=== PATIENT | female | born 1995 | race Caucasian/White ===

== ENCOUNTER → 2023-03-16 | Outpatient (CLI) | payer BC, SELFPAY ==
[2023-03-16 17:06] LABS: Absolute Lymphocyte Count 1.75 X10^3/uL (0.83-4.51); Basophil# 0.04 X10^3/uL; Basophil% 0.3 % (0-1); Eosinophil# 0.06 X10^3/uL; Eosinophils% 0.5 % (0-5); Hematocrit 36.3 % (37-47); Hemoglobin 12.4 g/dL (12.0-15.0); Lymphocyte # 1.75 X10^3/ul (0.83-4.51); Mean Corp Hgb Conc 34.2 g/dL (32-36); Mean Corpuscular Hgb 33.1 pg (27.0-32.0); Mean Corpuscular Volume 96.8 fL (81-99); Mean Platelet Vol. 10.9 fl (6.2-12.0); Monocyte# 0.57 X10^3/uL; Monocyte% 4.6 % (0-10); NRBC Flagged by Analyzer 0 % (0-5); Neutrophil # 9.98 X10^3/uL (2.7-7.7); Platelet Count 220 K/mm3 (150-450); RBC Distribution Width CV 12.3 % (11.6-14.6); RBC Distribution Width SD 43.2 fl (35.1-43.9); Red Blood Count 3.75 M/mm3 (4.2-5.4); White Blood Count 12.5 K/mm3 (4.4-11.0)
[2023-03-16 17:42] LABS: Glucose Challenge Gest 1H 50g 148 mg/dL (70-140)
[2023-03-16 18:17] LABS: HIV - WCH Non-Reactive (Nonreactive); Syphilis Antibodies Non-reactive
== END | disposition home or self-care (01) ==
LOC: LAB 15:47
PROVIDERS: Referring Provider Obstetrics & Gynecology; Visit Provider Obstetrics & Gynecology
DX: Z34.90 Encounter for supervision of normal pregnancy, unspecified, unspecified trimester (principal)
CPT/HCPCS: 36415; 82950; 85025; 86703; 86780; 86900; 86901

== ENCOUNTER → 2023-03-26 | Outpatient (CLI) | payer BC, SELFPAY ==
[2023-03-26 09:01] LABS: Glucose GTT-Gestation. Fasting 80 mg/dL (<105)
[2023-03-26 10:04] LABS: Glucose GTT-Gestational 1 Hr 212 mg/dL (<190)
[2023-03-26 11:36] LABS: Glucose GTT-Gestational 2 Hr 208 mg/dL (<165)
[2023-03-26 11:46] LABS: Glucose GTT-Gestational 3 Hr 167 L (<145)
== END | disposition home or self-care (01) ==
LOC: LAB 07:50
PROVIDERS: Referring Provider Obstetrics & Gynecology; Visit Provider Obstetrics & Gynecology
DX: Z13.1 Encounter for screening for diabetes mellitus (principal)
CPT/HCPCS: 36415; 82951; 82952

== ENCOUNTER → 2023-04-29 | Outpatient (CLI) | payer BC, SELFPAY ==
--- NOTE | 2023-04-29 15:25 | US_ITS ---
STUDY: SECOND AND THIRD TRIMESTER OBSTETRICAL ULTRASOUND - LIMITED REASON FOR EXAM: Female, 27 years old. gestational diabetes-GROWTH PRIOR ULTRASOUND: None. TECHNIQUE: Transabdominal TECHNICAL QUALITY: Adequate. FINDINGS: There is a single intrauterine fetus. The fetus is in a cephalic presentation. There is demonstrated cardiac activity with a heart rate of 152 bpm. There is a normal amniotic fluid volume. The largest amniotic fluid pocket measures 6.4 cm. The amniotic fluid index (RAMSEY) is 12.1 cm. The placenta is posterior in location and is not low lying. There are Grade 3 placental changes. The cervix measures cm in length: 3.1. BIOMETRY: BPD: 89 mm: 35 weeks, 6 days HC: 337 mm: 38 weeks, 4 days AC: 326 mm: 36 weeks, 4 days FL: 71 mm: 36 weeks, 4 days CI: 81.5 FL/AC: 21.8 FL/BPD: 80.3 HC/AC: 1.03 age by current US: 36 weeks, 2 days. ARACELI by current US: 8.28.23. Estimated weight: 2965 grams, +/- 445 grams, 69 %. Age by LMP: 35 weeks, 6 days. ARACELI by LMP: 8.31.23 US/OB Limited With Biometrics IMPRESSION: There is a single live intrauterine with a heart rate of 152 bpm. Electronically Signed: Javad Russo MD at 17:57 EDT ,
== END | disposition home or self-care (01) ==
PROVIDERS: Referring Provider Registered Nurse; Visit Provider Registered Nurse
DX: O24.419 Gestational diabetes mellitus in pregnancy, unspecified control (principal); Z3A.00 Weeks of gestation of pregnancy not specified
CPT/HCPCS: 76816

== ENCOUNTER → 2023-05-08 | Outpatient (CLI) | payer BC, SELFPAY | END | disposition home or self-care (01) | LOC: LABSPEC 10:49 | PROVIDERS: Referring Provider Registered Nurse; Visit Provider Registered Nurse | DX: Z34.90 Encounter for supervision of normal pregnancy, unspecified, unspecified trimester (principal) | CPT/HCPCS: 87081 ==

== ENCOUNTER 2023-05-25 07:10 | Inpatient (IN) | payer BC, SELFPAY ==
[2023-05-25] VITALS (45 sets, daily range): BP systolic 101–130; BP diastolic 57–78; PULSE 62–111; RESP 16–18; TEMP 35.7–37; O2SAT 89–100; BMI 25.0
[2023-05-25] MEDS: Lactated Ringers 1,000 ML 50 ML IV (07:45)
[2023-05-25 08:11] LABS: Absolute Lymphocyte Count 1.82 X10^3/uL (0.83-4.51); Absolute Neutrophil Count 6.7 X10^3/uL (2.0-7.7); Basophil# 0.03 X10^3/uL; Basophil% 0.3 % (0-1); Eosinophil# 0.07 X10^3/uL; Eosinophils% 0.8 % (0-5); Hematocrit 35.4 % (37-47); Hemoglobin 12.3 g/dL (12.0-15.0); Lymphocyte # 1.82 X10^3/ul (0.83-4.51); Lymphocyte % 19.8 % (19-41); Mean Corp Hgb Conc 34.7 g/dL (32-36); Mean Corpuscular Hgb 33.4 pg (27.0-32.0); Mean Corpuscular Volume 96.2 fL (81-99); Mean Platelet Vol. 11.9 fl (6.2-12.0); Monocyte# 0.52 X10^3/uL; Monocyte% 5.6 % (0-10); NRBC Flagged by Analyzer 0 % (0-5); Neutrophil # 6.71 X10^3/uL (2.7-7.7); Neutrophil % 72.8 % (47-70); Platelet Count 170 K/mm3 (150-450); RBC Distribution Width CV 12.3 % (11.6-14.6); RBC Distribution Width SD 42.2 fl (35.1-43.9); Red Blood Count 3.68 M/mm3 (4.2-5.4); White Blood Count 9.2 K/mm3 (4.4-11.0)
[2023-05-25 08:54] LABS: Syphilis Antibodies Non-reactive
[2023-05-25] MEDS: Oxytocin 15 Units/NS 250ml 15 UNITS/250 ML IV.SOLN 2 UNITS IV (09:06)
--- NOTE | 2023-05-25 09:10 | HP.PCM.OB_ITS ---
HPI - General General Date of Admission: 05/25/23 HPI Narrative EDGAR BEAL, is a 27 F who presents at 39.4 for IOL for diet controlled GDM. normal growth scan. good fm. no lof/vb/ mild ctx. Maternal Data Information ARACELI Calculator Estimated Delivery Date Method Current WG Current Estimate 05/28/23 LMP (Certain) 39w 4d PFSH PFSH Medical History (Updated 05/25/23 @ 09:16 by Elizabeth Love CNM) Dermoid cyst Family history of hearing loss at age younger than 7 years Gestational diabetes Kidney calculi Home Medications blood sugar diagnostic (Blood Glucose Test strips) #120 ea 03/26/23 [Rx Last Taken Unknown] blood-glucose meter #1 ea 03/26/23 [Rx Last Taken Unknown] lancets #100 ea 03/26/23 [Rx Last Taken Unknown] vit no.95-ferrous fumarate 28 mg-folic acid 800 mcg tablet ( Multivitamins) 1 tab PO DAILY 05/25/23 [History Last Taken 05/24/23] Allergy/AdvReac Type Severity Reaction Status Date / Time No Known Allergies Allergy Verified 05/25/23 09:02 Family History Father Hypertension Prostate cancer Grandfather Prostate cancer Surgical History (Updated 05/25/23 @ 08:11 by Chelsi Capone) History of lithotripsy History of surgery Social History Smoking Status: Never smoker substance use type: does not use caffeine: Yes what type of physical activity do you participate in: walking and weight training frequency: 3-4 times per week seatbelt use: always do you feel safe at home: Yes History 4 Elective abortions Hx Para 2 Spontaneous abortions Hx # Term Pregnancies 2 Ectopic pregnancies 1 Hx # Pregnancies Multiple births # of living children 2 Past Pregnancies Del. Date Name GA/Weeks Outcome Route Bth Weight Gen Labor Lgth Anesthesia Del Locatn Provider FOB Unknown DIANA 2014 live - full term 7#? Female Unknown Mian 2017 41 live - full term 7#6oz Male Delivery Date: Last Updated by: Dian Echeverria - open adoption Visit Details Expected Delivery Route/Plan Labor Preferences- CB/BF classes: denies labor support person: [] labor intervention preferences: [] pain management options preferred: epidural cut cord/dad catch: [] : yes PP control planned: 6 week discussed possible routes of delivery and associated risks: [] special requests: [] Plans Covid status: discussed Flu vaccine: discussed Tdap vaccine: obtained Rhogam: given 03/16 LARC form signed: done movement and labor precautions reviewed. Problem list reviewed and updated with the most current plan of care details and appropriate orders placed. Relevant counseling for the gestational age provided. Continue routine care and follow up unless otherwise noted in visit notes/problem list details OB Flowsheet Initial Weight: Not Recorded Date -?-?-?-?-?-?-?-?-?-?-?-?- EGA Weight BP Urine Prot -?-?-?-?-?-?-?-?-?-?-?-?- Glucose FHR FuHt Pres Dilation -?-?-?-?-?-?-?-?-?-?-?-?- Effaced St Visit Note 03/16/23 -?-?-?-?-?-?-?-?-?-?-?-?- 29w 4d 182 lb 2 oz 102/70 -?-?-?-?-?-?-?-?-?-?-?-?- 135 -?-?-?-?-?-?-?-?-?-?-?-?- SM- no vb lof go od fm gct and rhogam today, NADINE due to insurance coverage. 04/01/23 -?-?-?-?-?-?-?-?-?-?-?-?- 31w 6d 186 lb 106/70 Negative -?-?-?-?-?-?-?-?-?-?-?-?- Negative 134 33 -?-?-?-?-?-?-?-?-?-?-?-?- JV- no lof, vagi nal bleeding, or dec fm. glucose levels are perfect on diet. had reaction to the tdap injection (got red and hard) 04/15/23 -?-?-?-?-?-?-?-?-?-?-?-?- 33w 6d 184 lb 6 oz 118/68 Nega tive -?-?-?-?-?-?-?-?-?-?-?-?- Negative 150 33 -?-?-?-?-?-?-?-?-?-?-?-?- KW-+fm. no lof/v b/ctx. LARC done. growth US ordered for GDM. BS controlled. 04/29/23 -?-?-?-?-?-?-?-?-?-?-?-?- 35w 6d 184 lb 4 oz 117/73 Nega tive -?-?-?-?-?-?-?-?-?-?-?-?- Negative 148 36 -?-?-?-?-?-?-?-?-?-?-?-?- LC- no lof/vb/ct x. good fm. no concerns. fastings under 95. pp with good control. ultrasound today. gbs next visit. 05/08/23 -?-?-?-?-?-?-?-?-?-?-?-?- 37w 1d 183 lb 2 oz 118/72 Nega tive -?-?-?-?-?-?-?-?-?-?-?-?- 127 37 -?-?-?-?-?-?-?-?-?-?-?-?- LC- no concerns. no lof/ctx/vb. good fm. fasting under 95. not consistent with taking pp due to not eating consistent meals. growth in 69% will set up IOL by 40 weeks. LC- no concerns. no lof/ctx/ vb. good fm. fasting under 95. not consistent with taking pp due to not eating consistent meals but all under 120. growth in 69% will set up IOL by 40 weeks. GBS obtained. 05/14/23 -?-?-?-?-?-?-?-?-?-?-?-?- 38w 0d 188 lb 110/75 Negative -?-?-?-?-?-?-?-?-?-?-?-?- Negative 150 38 Cephalic 1 .5 -?-?-?-?-?-?-?-?-?-?-?-?- 70 -2 JV- no lof ,vaginal bleeding, or dec fm. labor precautions discussed. 05/22/23 -?-?-?-?-?-?-?-?-?-?-?-?- 39w 1d 187 lb 4 oz 112/68 Nega tive -?-?-?-?-?-?-?-?-?-?-?-?- Negative 126 39 -?-?-?-?-?-?-?-?-?-?-?-?- KW-no lof/vb/rgu lar contractions. good fm. labor precautions. IOL set up for thursday. NST FHR Rate Baby A Baseline: 145 Variability:: Moderate Accelerations:: 15 x 15 Decelerations:: None NST Reactive:: Yes FHR Category:: Category I ROS Cardiovascular Cardiovascular: Denies abdominal pain, chest pain, diaphoresis or dyspnea Respiratory/Chest Respiratory/Chest: Denies change in mental status, chest congestion, chest tightness, cough, shortness of breath at rest, shortness of breath with exertion, breast mass, breast pain, breast skin changes, breast swelling, change in breast shape or nipple discharge Genitourinary Genitourinary: Reports change in urinary stream Musculoskeletal Musculoskeletal: Reports none Integumentary Integumentary: Reports none Neurologic Neurologic: Reports none Psychiatric Psychiatric: Reports none Endocrine Endocrinology: Reports none Hematologic/Lymphatic Hematologic/Lymphatic: Reports none Allergic/Immunologic Allergic/Immunologic: Reports none Vital Signs Vital Signs Vital Signs: 05/25/23 07:35 05/25/23 07:35 05/25/23 07:36 Temperature Temperature Source Temporal Pulse Rate 83 Blood Pressure 124/76 H BP Systolic 124 BP Diastolic 76 Pulse Ox 05/25/23 07:36 05/25/23 07:36 05/25/23 07:36 Temperature 96.8 F L Temperature Source Pulse Rate 87 Blood Pressure BP Systolic BP Diastolic Pulse Ox 96 Weight Weight: 190 lb Body Mass Index (BMI) 25.0 Physical Exam Const alert, oriented x3 and no apparent distress General Appearance: cooperative, comfortable and well kempt Orientation / Consciousness: awake and oriented to person Exam Limitations: no limitations HEENT normocephalic Neck full ROM Chest inspection of chest normal Resp normal respiratory effort, normal air movement and no retractions Effort and Inspection: able to speak in complete sentences and symmetric chest movement Cardio regular rate Peripheral Pulses: pulses 2+ throughout GI normal to inspection, nondistended, normoactive bowel sounds Inspection: gravid no CVA tenderness and appearance of the vagina normal External Female Exam: normal appearance of the urethra; Negative for external lesion OB / External & Speculum: external exam normal Manual OB Exam: estimated gestational size appropriate and presentation cephalic Uterus Palpation: Negative for uterus tender Extremity normal to inspection Skin no rashes or lesions noted Neuro deep tendon reflexes 2+ bilaterally and gait normal Motor Exam: strength 5/5 throughout and clonus absent Psych Activity / Motor Behavior: appropriate eye contact Speech: normal speech Labs Labs Labs: Blood Type A NEGATIVE Antibody Screen Pending Hct 35.4 % (37-47) L Hgb 12.3 g/dL (12.0-15.0) Pap Smear Negative Obstetrics US Syphilis Total Ab Non-reactive HIV 1&2 Antibody Non-Reactive (Nonreactive) Glucose 1 Hr 50 gm 148 mg/dL (70-140) H Assessment & Plan (1) Rh negative status during : COMMENT: rhogam at 28 weeks and PRN-Rhogam given 03/16/23 (2) : QUALIFIERS: Weeks of gestation: 39 weeks Qualified Code(s): Z3A.39 - 39 weeks gestation of COMMENT: GBS neg, late NADINE from [facility] due to insurance change, quad screen nl. nl anatomy. (3) Supervision of normal , antepartum: COMMENT: PRR ARACELI 05/28/23 boy Ankit Longoria (rowen-adopted) Davian (his first) (4) Gestational diabetes: COMMENT: diet controlled. growth us at 36 weeks PLAN: monitor glucose intrapartum per protocol (5) Encounter for induction of labor: COMMENT: pitocin for IOL/ AROM PRN PLAN: Plan admit with routine orders for IOL pitocin. GBS negative Dr. Pierre updated on admission, exam and poc. agrees with co-management for IOL for diet controlled GDM. available as needed.
[2023-05-25 09:26] LABS: Bedside Glucose 106 mg/dL (74-106)
[2023-05-25 09:44] LABS: Bedside Glucose 80 mg/dL (74-106)
[2023-05-25] MEDS: LACTATED RINGERS 500 ML 999 ML IV (11:03)
[2023-05-25] MEDS: fentaNYL-bupivacaine (epidural) 100 ML BAG EPIDURAL (11:45)
[2023-05-25 14:52] LABS: Bedside Glucose 69 mg/dL (74-106)
[2023-05-25] MEDS: Oxytocin 15 Units/NS 250ml 15 UNITS/250 ML IV.SOLN 83 UNITS IV (16:50)
[2023-05-25 17:53] LABS: Bedside Glucose 101 mg/dL (74-106)
--- NOTE | 2023-05-25 18:16 | OP.PCM_ITS ---
Assessment & Plan (1) (spontaneous vaginal delivery): COMMENT: LC IOL GDM diet controlled 39 weeks. Boy: Ankit. Maternal Data Information ARACELI Calculator Estimated Delivery Date Method Current WG Current Estimate 05/28/23 LMP (Certain) 39w 4d Final ARACELI: 05/28/23 Gestational age: 39.4 Vaginal Delivery Maternal Presentation Maternal Presentation: Medically Indicated Induction Maternal Presentation: at 39.4 for IOL for GDM diet controlled. otherwise uncomplicated . pitocin induction. Type of Induction: Pitocin Operative Information Date of Procedure: 05/25/23 Pre-Operative Diagnosis: see problem list Post-Operative Diagnosis: Surgery / Procedure Performed: Spontaneous Vaginal Delivery Type of Anesthesia: Epidural Drain: Hodgson to straight drain Estimated Blood Loss: 300 Time of Delivery: 15:57 Findings Description of Procedure: Patient began pushing and delivered the head in the BRIGITTE presentation. The head was delivered atraumatically and a loose nuchal cord ?2 was identified and easily reduced over the infant's head. The anterior and posterior shoulders delivered without complication followed by the rest of the and the was placed on the maternal abdomen. Delayed cord clamping was employed for approximately 3 minutes. Cord was clamped and cut and gentle traction was applied to the cord and the placenta delivered spontaneously immediately following it was noted to be intact with three-vessel cord. The perineum and vagina were inspected and noted to have right labia laceration with small vaginal/labia laceration, repaired with 3-0. EBL was 300cc. Patient and infant tolerated delivery well entered recovery phase bonding skin to skin. baby boy Ankit Presentation: Vertex Amniotic Membrane Rupture Type: Spontaneous Time of Membrane Rupture: 1pm Amniotic Fluid Description: Clear Placental Delivery Description: Spontaneous Placenta Disposition: [facility] Cord Vessel Description: 3 Vessels Cord Entanglement: Around neck x 2, loose Nuchal Cord Compression: Without compression Infant A Gender: Male (1 minute): 8 (5 minute): 9 Delayed Cord Clamping: Yes Post Vaginal Delivery Medications Given After Delivery: IV Pitocin and IM Pitocin Episiotomy Description: None Laceration: Vaginal Extension/lac Procedures Urinary/Genital 52xxx-59xxx: 24165 Vaginal Delivery+PP Care([facility])
--- NOTE | 2023-05-25 18:22 | DCINST_ITS ---
Discharge Instructions Diet Discharge Diet: No restrictions Activity Discharge Activity: May Not Drive and May Shower May resume sexual activity in: 6 weeks Weight Bearing Status: Full weight bearing Dressing / Incision Call your doctor if your incision/area has: Sudden Increased Bleeding, Increased Pain/ Swelling and Foul Smelling Discharge Call your doctor if you observe: Fever of 101 or Higher, Numbness or Tingling, Change in Color, Inability to urinate, Inability to have a bowel movement, Using more than 1 pad per hour, Shortness of breath, Dizziness, Fainting spells, Chest pain, Calf discomfort and Uncontrolled pain Follow Up Care Please Follow Up With: Elizabeth Love CNM When: 6 weeks , please call office to make an appointment. Congratulations on the of your baby boy LILLY!!! Test Results: Test results from this visit will be discussed in further detail at your follow- up appointment, if applicable. Discharge Plan Admission Admit Date/Time: 05/25/23 07:10 Attending Provider: Elizabeth Love Primary Care Provider: Rubi PhysicianFabiola Primary Discharge Orders/Prescriptions Prescriptions: No Action PNV cmb#95-ferrous fumarate-FA [ Multivitamins] 28 mg iron- 800 mcg tablet 1 tab PO DAILY (DME) blood-glucose meter Misc See Rx Instructions .MEDSUPPLY Qty: 1 0RF Rx Instructions: As directed- Test fasting and 2 hours after meals (DME) lancets Misc See Rx Instructions .MEDSUPPLY Qty: 100 6RF Rx Instructions: As directed-test fasting & 2 hours post meals (DME) Blood Glucose Test Strip See Rx Instructions .Route Qty: 120 4RF Rx Instructions: As directed- test fasting and 2 hours post meals Referrals / Follow Up: Care Physician,No Primary [Primary Care Provider] -
[2023-05-25] MEDS: Benzocaine/Lanolin/Aloe Vera 1 SPRAY EACH TOPICAL (21:06)
[2023-05-26] VITALS (10 sets, daily range): BP systolic 103–117; BP diastolic 56–70; PULSE 61–80; RESP 16–18; TEMP 36.3–36.8; O2SAT 96–97
[2023-05-26 05:30] LABS: Bedside Glucose 79 mg/dL (74-106)
--- NOTE | 2023-05-26 07:16 | PN.OBGYN_ITS ---
Subjective Subjective Patient doing well without complaints. Tolerating PO. Ambulating and voiding without difficulty. Feeding well. Denies chest pain, shortness of breath, calf pain/swelling, fevers, chills, lightheadedness. Objective Data Objective Data Vital Signs: Vital Signs Temp Pulse Resp BP Pulse Ox O2 Del Method 98.3 F 77 16 111/56 L 97 Room Air 05/26/23 04:20 05/26/23 04:20 05/26/23 04:20 05/26/23 04:20 05/26/23 04:20 05/26/23 04:20 Oxygen Delivery Method Room Air Weight: 190 lb Body Mass Index (BMI) 25.0 Intake & Output: Intake and Output for Last 24 Hours 05/24/23 05/25/23 05/26/23 23:59 23:59 23:59 Intake Total 1981.71 / 1981. Output Total 2750 / 2750 Balance -767.29 / -767.29 Lab / Micro Data Attestation: I reviewed the patient's lab results. 05/25/23 07:45 Labs: Laboratory Results - last 24 hr 05/25/23 07:45: WBC 9.2, RBC 3.68 L, Hgb 12.3, Hct 35.4 L, MCV 96.2, MCH 33.4 H, MCHC 34.7, RDW Std Deviation 42.2, RDW Coeff of Sami 12.3, Plt Count 170, MPV 1 1.9, Immature Gran % (Auto) 0.700, Neut % (Auto) 72.8 H, Lymph % (Auto) 19.8, [place] % (Auto) 5.6, Eos % (Auto) 0.8, Baso % (Auto) 0.3, Absolute Neuts (auto) 6.7, Absolute Lymphs (auto) 1.82, Nucleated RBC % 0, Syphilis Total Ab Non- reactive, Blood Type A NEGATIVE, Antibody Screen NEGATIVE 05/25/23 08:03: POC Glucose 106 05/25/23 09:17: POC Glucose 80 05/25/23 14:34: POC Glucose 69 L 05/25/23 17:32: POC Glucose 101 05/26/23 05:10: POC Glucose 79 ROS Constitutional Constitutional: Reports systems reviewed and no addt'l complaints, except as documented; Denies anorexia or headache(s) Cardiovascular Cardiovascular: Reports systems reviewed and no addt'l complaints, except as documented; Denies dizziness, dyspnea, nausea or tachypnea Respiratory/Chest Respiratory/Chest: Reports systems reviewed and no addt'l complaints, except as documented; Denies cough, dyspnea, shortness of breath at rest or tachypnea Gastrointestinal Gastrointestinal: Reports systems reviewed and no addt'l complaints, except as documented; Denies abdominal pain, constipation or nausea Genitourinary Genitourinary: Reports systems reviewed and no addt'l complaints, except as documented; Denies burning urination, difficulty urinating, dysuria, urinary frequency or urinary incontinence Musculoskeletal Musculoskeletal: Reports systems reviewed and no addt'l complaints, except as documented Integumentary Integumentary: Reports systems reviewed and no addt'l complaints, except as documented Neurologic Neurologic: Reports systems reviewed and no addt'l complaints, except as documented; Denies abnormal speech, dizziness or headache(s) Psychiatric Psychiatric: Reports systems reviewed and no addt'l complaints, except as documented Endocrine Endocrinology: Reports systems reviewed and no addt'l complaints, except as documented Hematologic/Lymphatic Hematologic/Lymphatic: Reports systems reviewed and no addt'l complaints, except as documented Physical Exam Const alert, oriented x3 and no apparent distress Neck full ROM Resp normal respiratory effort, normal air movement and no retractions Effort and Inspection: able to speak in complete sentences and symmetric chest movement GI soft to palpation Bladder / Kidney Exam: bladder normal to palpation Uterus Palpation: uterus fundus firm Extremity normal to inspection and full ROM Psych mental status grossly normal, thought process normal and cooperative Assessment & Plan (1) (spontaneous vaginal delivery): COMMENT: LC IOL GDM diet controlled 39 weeks. Boy: Ankit. PLAN: s/p PPD # 1 1. routine post delivery care 2. breast feeding- support given 3. rh positive 4. rubella immune 5. Discharge Home (2) Encounter for induction of labor: COMMENT: pitocin for IOL/ AROM PRN (3) Abnormal glucose level: COMMENT: 3 HR GTT (4) Rh negative status during : COMMENT: rhogam at 28 weeks and PRN-Rhogam given 03/16/23 (5) : QUALIFIERS: Weeks of gestation: 39 weeks Qualified Code(s): Z3A.39 - 39 weeks gestation of COMMENT: GBS neg, late NADINE from [facility] due to insurance change, quad screen nl. nl anatomy. (6) Supervision of normal , antepartum: COMMENT: PRR ARACELI 05/28/23 boy Ankit Longoria (rowen-adopted) Davian (his first) (7) Gestational diabetes: COMMENT: diet controlled. growth us at 36 weeks Charges/Coding Procedures Urinary/Genital 52xxx-59xxx: No Charge Multi Select Codes Urinary/Genital Urinary/Genital CPT Codes: No Charge
[2023-05-26] MEDS: Naproxen 500 MG Tablet PO (07:36)
[2023-05-26] MEDS: Acetaminophen 500 MG Tablet 1000 MG PO (10:16)
[2023-05-26] MEDS: Senna/Docusate Sodium 1 Tablet PO (10:17)
== END 2023-05-26 17:00 | disposition home or self-care (01) | DRG 807 ==
PROVIDERS: Obstetrics & Gynecology; Admitting Provider Registered Nurse; Referring Provider Registered Nurse; Visit Provider Registered Nurse
DX: O24.420 Gestational diabetes mellitus in childbirth, diet controlled (principal); Z37.0 Single live birth; O26.23 Pregnancy care for patient with recurrent pregnancy loss, third trimester; Z3A.39 39 weeks gestation of pregnancy; Z67.91 Unspecified blood type, Rh negative
CPT/HCPCS: 59025; 59050; 82962; 85025; 86780; 86850; 86900; 86901; 99221; J7120; G0378; J3490

== ENCOUNTER → 2024-03-25 | Outpatient (CLI) | payer OTHER, SELFPAY ==
--- NOTE | 2024-03-25 12:40 | US_ITS ---
HISTORY: viability. LMP 02/13/2024. TECHNIQUE: Transvaginal pelvic ultrasound was performed. 116 images. COMPARISON: None. FINDINGS: UTERUS: 11.2 x 7.2 x 8.2 cm and retroverted. RIGHT OVARY: 2.4 x 3.2 x 2.1 cm with a 2.1 cm corpus luteal cyst. LEFT OVARY: 2.3 x 3.6 x 2.6 cm. No adnexal masses. FREE FLUID: Trace. INTRAUTERINE GESTATIONAL SAC: Twin. Twin A- MEAN SAC DIAMETER: 2.5 cm corresponding to 7 weeks 4 days. YOLK SAC: 3 mm. POLE: Sumas-rump length 11 mm corresponding to 7 weeks 2 days. HEART MOTION: 140 bpm. Twin B- MEAN SAC DIAMETER: 2.6 cm corresponding to 7 weeks 4 days. YOLK: 2-3 mm. POLE: 11 mm corresponding to 7 weeks 2 days. HEART MOTION: 140 bpm. ESTIMATED DELIVERY DATE: 11/08/2024. IMPRESSION: Living twin intrauterine with an estimated gestational age of 7 weeks 2 days. Electronically Signed: Roopa Patel MD at 13:54 EDT , HISTORY: viability. LMP 02/13/2024. TECHNIQUE: Transvaginal pelvic ultrasound was performed. 116 images. COMPARISON: None. FINDINGS: UTERUS: 11.2 x 7.2 x 8.2 cm and retroverted. RIGHT OVARY: 2.4 x 3.2 x 2.1 cm with a 2.1 cm corpus luteal cyst. LEFT OVARY: 2.3 x 3.6 x 2.6 cm. No adnexal masses. FREE FLUID: Trace. INTRAUTERINE GESTATIONAL SAC: Twin. Twin A- MEAN SAC DIAMETER: 2.5 cm corresponding to 7 weeks 4 days. YOLK SAC: 3 mm. POLE: Sumas-rump length 11 mm corresponding to 7 weeks 2 days. HEART MOTION: 140 bpm. Twin B- MEAN SAC DIAMETER: 2.6 cm corresponding to 7 weeks 4 days. YOLK: 2-3 mm. POLE: 11 mm corresponding to 7 weeks 2 days. HEART MOTION: 140 bpm. ESTIMATED DELIVERY DATE: 11/08/2024. US/Transvaginal w/Preg US
== END | disposition home or self-care (01) ==
PROVIDERS: Referring Provider Advanced Practice Midwife; Visit Provider Advanced Practice Midwife
DX: Z34.90 Encounter for supervision of normal pregnancy, unspecified, unspecified trimester (principal); Z3A.00 Weeks of gestation of pregnancy not specified
CPT/HCPCS: 76817

== ENCOUNTER → 2024-04-06 | Outpatient (CLI) | payer OTHER, SELFPAY ==
[2024-04-09 16:09] LABS: Chlamydia By Nucleic Acid AMP Negative (Negative); Gonococcus By Nucleic Acid AMP Negative (Negative)
== END | disposition home or self-care (01) ==
PROVIDERS: Referring Provider Advanced Practice Midwife; Visit Provider Advanced Practice Midwife
DX: O09.299 Supervision of pregnancy with other poor reproductive or obstetric history, unspecified trimester (principal); Z86.32 Personal history of gestational diabetes; O26.899 Other specified pregnancy related conditions, unspecified trimester; Z67.91 Unspecified blood type, Rh negative; Z3A.00 Weeks of gestation of pregnancy not specified
CPT/HCPCS: 87086; 87088; 87491; 87591

== ENCOUNTER → 2024-04-29 | Outpatient (CLI) | payer OTHER, SELFPAY ==
[2024-04-29 11:19] LABS: Absolute Lymphocyte Count 1.83 X10^3/uL (0.83-4.51); Absolute Neutrophil Count 5.9 X10^3/uL (2.0-7.7); Basophil# 0.02 X10^3/uL; Basophil% 0.2 % (0-1); Eosinophil# 0.07 X10^3/uL; Eosinophils% 0.8 % (0-5); Hematocrit 35.6 % (37-47); Hemoglobin 11.9 g/dL (12.0-15.0); Lymphocyte # 1.83 X10^3/ul (0.83-4.51); Lymphocyte % 22.1 % (19-41); Mean Corp Hgb Conc 33.4 g/dL (32-36); Mean Corpuscular Hgb 31.3 pg (27.0-32.0); Mean Corpuscular Volume 93.7 fL (81-99); Mean Platelet Vol. 10.9 fl (6.2-12.0); Monocyte# 0.44 X10^3/uL; Monocyte% 5.3 % (0-10); NRBC Flagged by Analyzer 0 % (0-5); Neutrophil # 5.86 X10^3/uL (2.7-7.7); Platelet Count 266 K/mm3 (150-450); RBC Distribution Width CV 12.3 % (11.6-14.6); RBC Distribution Width SD 42.2 fl (35.1-43.9); White Blood Count 8.3 K/mm3 (4.4-11.0)
[2024-04-29 11:52] LABS: Hemoglobin A1c 4.8 % (3.8-5.6)
[2024-04-29 12:04] LABS: HIV - WCH Non-Reactive (Nonreactive); Hepatitis B Surface Antigen Non-Reactive (Nonreactive); Hepatitis C Antibody Non-Reactive (Nonreactive); Rubella IgG Reactive (Nonreactive); Syphilis Antibodies Non-reactive
== END | disposition home or self-care (01) ==
PROVIDERS: Advanced Practice Midwife; Referring Provider Obstetrics & Gynecology; Visit Provider Obstetrics & Gynecology
DX: O09.299 Supervision of pregnancy with other poor reproductive or obstetric history, unspecified trimester (principal); O26.899 Other specified pregnancy related conditions, unspecified trimester; Z67.91 Unspecified blood type, Rh negative; Z3A.00 Weeks of gestation of pregnancy not specified; O09.90 Supervision of high risk pregnancy, unspecified, unspecified trimester
CPT/HCPCS: 36415; 83036; 85025; 86703; 86762; 86780; 86803; 86850; 86900; 86901; 87340

== ENCOUNTER → 2024-06-20 | Outpatient (CLI) | payer OTHER, SELFPAY ==
--- NOTE | 2024-06-20 12:23 | US_ITS ---
STUDY: SECOND AND THIRD TRIMESTER OBSTETRICAL ULTRASOUND REASON FOR EXAM: Female, 28 years old anatomy exam- TWINS LMP: TECHNIQUE: Transabdominal TECHNICAL QUALITY: Adequate. PRIOR ULTRASOUND: None. FINDINGS: There is a single intrauterine fetus. The fetus is in a cephalic presentation. There is demonstrated cardiac activity with a heart rate of 145 bpm. There is a normal amniotic fluid volume. The largest amniotic fluid pocket measures 3.95 cm. The amniotic fluid index (RAMSEY) is cm. The placenta is posterior There are Grade 0 placental changes. The cervix measures 4.4 cm in length. The bilateral adnexal regions are nonvisualized BIOMETRY: BPD: 4.45 cm: 19 weeks, 3 days HC: 17.63 cm: 20 weeks, 1 days AC: 15.63 cm: 20 weeks, 6 days FL: 3.12 cm: 19 weeks, 5 days CI: 0.71 FL/BPD: 0.7 FL/HC: 0.17 FL/AC: 0.19 HC/AC: 1.13 age by current US: 20 weeks, 0 days. ARACELI by current US: November 07, 2024. Estimated weight: 339 grams, +/- 51 grams, 73 %. ANATOMY: Cranium: Normal lateral ventricles. Normal choroid plexus. Normal cerebellum. Normal cisterna magna. Normal face, nose and lips. Chest: Normal 4-chamber heart. Abdomen/Pelvis: Normal diaphragm. Normal stomach. Normal abdominal wall. Normal cord insertion. Normal 3 vessel cord. Normal kidneys. Normal bladder. Spine: Normal cervical spine. Normal thoracic spine. Normal lumbar spine. Normal sacrum. Extremities: Normal bilateral upper extremities. Normal bilateral lower extremities. IMPRESSION: Fetus a of twin gestation approximately 20 weeks gestational age without significant abnormality Electronically Signed: Shadi Monique MD at 22:31 EDT , STUDY: SECOND AND THIRD TRIMESTER OBSTETRICAL ULTRASOUND - TWIN REASON FOR EXAM: Female, 28 years old. LMP: anatomy exam- TWINS TECHNIQUE: Transabdominal TECHNICAL QUALITY: Adequate. COMPARISON: None. FINDINGS: The uterine wall is normal. There is a competent closed cervical os. The cervix measures 4.4 cm in length. The bilateral adnexal regions are nonvisualized . . Fetus B demonstrates cardiac activity with a heart rate of 130 bpm. Fetus B is in a cephalic presentation. FETUS B BIOMETRY: BPD: 4.5 cm: 19 weeks, 6 days HC: 17.8 cm: 20 weeks, 2 days AC: 15.01 cm: 20 weeks, 2 days FL: 3.09 cm: 19 weeks, 4 days CI: 0.72 FL/BPD: 0.67 FL/HC: 0.17 FL/AC: 0.2 HC/AC: 1.19 age by current US: 20 weeks, 0 days. ARACELI by current US: November 07, 2024. Estimated weight: 323 grams, +/- 49 grams, 59 %. age by prior US: 19 weeks, 6 days. ARACELI by previous US: November 08, 2024. Age by LMP: 19 weeks, 5 days. ARACELI by LMP: November 09, 2024. FETUS B ANATOMY: Cranium: Normal lateral ventricles. Normal choroid plexus. Normal cerebellum. Normal cisterna magna. Normal face, nose and lips. Chest: Normal 4-chamber heart. Abdomen/Pelvis: Normal diaphragm. Normal stomach. Normal abdominal wall. Normal cord insertion. Normal 3 vessel cord. Normal kidneys. Normal bladder. Spine: Normal cervical spine. Normal thoracic spine. Normal lumbar spine. Normal sacrum. Extremities: Normal bilateral upper extremities. Normal bilateral lower extremities. US/OB Anatomy w/ Transvaginal IMPRESSION: Viable fetus B of intrauterine twin gestation. No significant abnormality Electronically Signed: Shadi Monique MD at 22:37 EDT ,
== END | disposition home or self-care (01) ==
LOC: US 12:22
PROVIDERS: Referring Provider Obstetrics & Gynecology; Visit Provider Obstetrics & Gynecology
DX: O09.90 Supervision of high risk pregnancy, unspecified, unspecified trimester (principal); Z3A.00 Weeks of gestation of pregnancy not specified
CPT/HCPCS: 76805; 76810; 76817

== ENCOUNTER → 2024-07-26 | Outpatient (CLI) | payer OTHER, SELFPAY ==
--- NOTE | 2024-07-26 15:25 | US_ITS ---
HISTORY: growth scan 24wks. TECHNIQUE: Transabdominal pelvic ultrasound was performed. 74 images. COMPARISON: 06/20/2024. FINDINGS: INTRAUTERINE GESTATION(s): Twin. Intertwin membrane noted. Twin A: PRESENTATION: Breech. HEART MOTION: 153 bpm. PLACENTA: Anterior. No placenta previa. AMNIOTIC FLUID: Maximum vertical pocket 6.6 cm. BIPARIETAL DIAMETER: 6.2 cm, corresponding to 25 weeks 1 day. HEAD CIRCUMFERENCE: 23.2 cm, corresponding to 25 weeks 1 day. ABDOMINAL CIRCUMFERENCE: 20 cm, corresponding to 24 weeks 4 days. FEMUR LENGTH: 4.4 cm, corresponding to 24 weeks 4 days. ESTIMATED GESTATIONAL AGE: 25 weeks 0 days. ESTIMATED DUE DATE (ARACELI): 11/08/2024. ESTIMATED WEIGHT: 727 g corresponding to 34th percentile. Twin B: PRESENTATION: Cephalic. HEART MOTION: 148 bpm. PLACENTA: Posterior. No placenta previa. AMNIOTIC FLUID: Maximum vertical pocket 5.1 cm. BIPARIETAL DIAMETER: 6.3 cm, corresponding to 25 weeks 3 days. HEAD CIRCUMFERENCE: 23.5 cm, corresponding to 25 weeks 3 days. ABDOMINAL CIRCUMFERENCE: 20.1 cm, corresponding to 24 weeks 5 days. FEMUR LENGTH: 4.5 cm, corresponding to 24 weeks 6 days. ESTIMATED GESTATIONAL AGE: 25 weeks 1 day. ESTIMATED DUE DATE (ARACELI): 11/07/2024. ESTIMATED WEIGHT: 752 g corresponding to 43rd percentile. Discordance in estimated gestational age 3.38%. IMPRESSION: Living twin intrauterine with biometry as above. Electronically Signed: Roopa Patel MD at 9:05 EDT , HISTORY: growth scan 24wks. TECHNIQUE: Transabdominal pelvic ultrasound was performed. 74 images. COMPARISON: 06/20/2024. FINDINGS: INTRAUTERINE GESTATION(s): Twin. Intertwin membrane noted. Twin A: PRESENTATION: Breech. HEART MOTION: 153 bpm. PLACENTA: Anterior. No placenta previa. AMNIOTIC FLUID: Maximum vertical pocket 6.6 cm. BIPARIETAL DIAMETER: 6.2 cm, corresponding to 25 weeks 1 day. HEAD CIRCUMFERENCE: 23.2 cm, corresponding to 25 weeks 1 day. ABDOMINAL CIRCUMFERENCE: 20 cm, corresponding to 24 weeks 4 days. FEMUR LENGTH: 4.4 cm, corresponding to 24 weeks 4 days. ESTIMATED GESTATIONAL AGE: 25 weeks 0 days. ESTIMATED DUE DATE (ARACELI): 11/08/2024. ESTIMATED WEIGHT: 727 g corresponding to 34th percentile. Twin B: PRESENTATION: Cephalic. HEART MOTION: 148 bpm. PLACENTA: Posterior. No placenta previa. AMNIOTIC FLUID: Maximum vertical pocket 5.1 cm. BIPARIETAL DIAMETER: 6.3 cm, corresponding to 25 weeks 3 days. HEAD CIRCUMFERENCE: 23.5 cm, corresponding to 25 weeks 3 days. ABDOMINAL CIRCUMFERENCE: 20.1 cm, corresponding to 24 weeks 5 days. FEMUR LENGTH: 4.5 cm, corresponding to 24 weeks 6 days. ESTIMATED GESTATIONAL AGE: 25 weeks 1 day. ESTIMATED DUE DATE (ARACELI): 11/07/2024. ESTIMATED WEIGHT: 752 g corresponding to 43rd percentile. Discordance in estimated gestational age 3.38%. US/OB Limited With Biometrics
== END | disposition home or self-care (01) ==
PROVIDERS: Referring Provider Obstetrics & Gynecology; Visit Provider Obstetrics & Gynecology
DX: O30.049 Twin pregnancy, dichorionic/diamniotic, unspecified trimester (principal); Z3A.00 Weeks of gestation of pregnancy not specified
CPT/HCPCS: 76816

== ENCOUNTER → 2024-08-17 | Outpatient (CLI) | payer OTHER, SELFPAY ==
[2024-08-17 15:19] LABS: Absolute Lymphocyte Count 1.79 X10^3/uL (0.83-4.51); Absolute Neutrophil Count 9.3 X10^3/uL (2.0-7.7); Basophil# 0.05 X10^3/uL; Basophil% 0.4 % (0-1); Eosinophil# 0.03 X10^3/uL; Eosinophils% 0.3 % (0-5); Hematocrit 36.4 % (37-47); Hemoglobin 12.9 g/dL (12.0-15.0); Lymphocyte # 1.79 X10^3/ul (0.83-4.51); Lymphocyte % 15.3 % (19-41); Mean Corp Hgb Conc 35.4 g/dL (32-36); Mean Corpuscular Hgb 33.8 pg (27.0-32.0); Mean Corpuscular Volume 95.3 fL (81-99); Mean Platelet Vol. 11.2 fl (6.2-12.0); Monocyte# 0.46 X10^3/uL; Monocyte% 3.9 % (0-10); NRBC Flagged by Analyzer 0 % (0-5); Neutrophil # 9.33 X10^3/uL (2.7-7.7); Neutrophil % 79.5 % (47-70); Platelet Count 202 K/mm3 (150-450); RBC Distribution Width CV 12.5 % (11.6-14.6); RBC Distribution Width SD 42.8 fl (35.1-43.9); Red Blood Count 3.82 M/mm3 (4.2-5.4); White Blood Count 11.7 K/mm3 (4.4-11.0)
[2024-08-17 16:01] LABS: HIV - WCH Non-Reactive (Nonreactive); Syphilis Antibodies Non-reactive
== END | disposition home or self-care (01) ==
LOC: BWCLAB 14:46
PROVIDERS: Obstetrics & Gynecology; Referring Provider Advanced Practice Midwife; Visit Provider Advanced Practice Midwife
DX: O26.899 Other specified pregnancy related conditions, unspecified trimester (principal); Z67.91 Unspecified blood type, Rh negative; Z3A.00 Weeks of gestation of pregnancy not specified; O09.90 Supervision of high risk pregnancy, unspecified, unspecified trimester
CPT/HCPCS: 36415; 85025; 86703; 86780; 86850; 86900; 86901

== ENCOUNTER → 2024-08-23 | Outpatient (CLI) | payer OTHER, SELFPAY ==
--- NOTE | 2024-08-23 09:13 | US_ITS ---
STUDY: SECOND AND THIRD TRIMESTER OBSTETRICAL ULTRASOUND - LIMITED REASON FOR EXAM: Female, 28 years old growth scan 28wks COMPARISON: 07/26/2024 ultrasound.. TECHNIQUE: Transabdominal sonographic images of the pelvis. FINDINGS: There is a twin intrauterine . Fetus A is in the breech presentation. Fetus B is in the cephalic presentation. Heart Rate of Fetus A: 143 bpm. Heart Rate of Fetus B: 143 bpm. Amniotic fluid volume appears grossly normal with a maximum vertical pocket of 5.7 cm. The placentas are anterior for fetus A and posterior for fetus B with no evidence of placenta previa. BIOMETRY: FETUS A: BPD: 7.3 cm: 29 weeks, 1 days HC: 27.9 cm: 29 weeks, 2 days AC: 24.9 cm: 29 weeks, 1 days FL: 5.5 cm: 28 weeks, 6 days FETUS B: BPD: 7.5 cm: 29 weeks, 6 days HC: 27.8 cm: 30 weeks, 3 days AC: 26.0 cm: 30 weeks, 2 days FL: 5.6 cm: 29 weeks, 4 days age by today''s US: Fetus A: 29 weeks, 1 days and ARACELI of 11/07/2024. Fetus B: 30 weeks, 1 days and ARACELI of 10/31/2024. Estimated weight: Fetus A: 1340 grams. Fetus B: 1511 grams. US/OB Limited With Biometrics IMPRESSION: Twin live intrauterine with an 11% discordance of weights. Electronically Signed: Shadi Mendoza DO at 2:33 EST , STUDY: SECOND AND THIRD TRIMESTER OBSTETRICAL ULTRASOUND - LIMITED REASON FOR EXAM: Female, 28 years old growth scan 28wks COMPARISON: 07/26/2024 ultrasound.. TECHNIQUE: Transabdominal sonographic images of the pelvis. FINDINGS: There is a twin intrauterine . Fetus A is in the breech presentation. Fetus B is in the cephalic presentation. Heart Rate of Fetus A: 143 bpm. Heart Rate of Fetus B: 143 bpm. Amniotic fluid volume appears grossly normal with a maximum vertical pocket of 5.7 cm. The placentas are anterior for fetus A and posterior for fetus B with no evidence of placenta previa. BIOMETRY: FETUS A: BPD: 7.3 cm: 29 weeks, 1 days HC: 27.9 cm: 29 weeks, 2 days AC: 24.9 cm: 29 weeks, 1 days FL: 5.5 cm: 28 weeks, 6 days FETUS B: BPD: 7.5 cm: 29 weeks, 6 days HC: 27.8 cm: 30 weeks, 3 days AC: 26.0 cm: 30 weeks, 2 days FL: 5.6 cm: 29 weeks, 4 days age by today''s US: Fetus A: 29 weeks, 1 days and ARACELI of 11/07/2024. Fetus B: 30 weeks, 1 days and ARACELI of 10/31/2024. Estimated weight: Fetus A: 1340 grams. Fetus B: 1511 grams.
== END | disposition home or self-care (01) ==
LOC: US 09:12
PROVIDERS: Referring Provider Obstetrics & Gynecology; Visit Provider Obstetrics & Gynecology
DX: O30.043 Twin pregnancy, dichorionic/diamniotic, third trimester (principal); Z3A.28 28 weeks gestation of pregnancy
CPT/HCPCS: 76816

== ENCOUNTER → 2024-08-26 | Outpatient (CLI) | payer OTHER, SELFPAY ==
[2024-08-26 07:33] LABS: Bedside Glucose 82 mg/dL (74-106)
[2024-08-26 09:09] LABS: Glucose GTT-Gestation. Fasting 87 mg/dL (<105)
[2024-08-26 10:08] LABS: Glucose GTT-Gestational 1 Hr 163 mg/dL (<190)
[2024-08-26 10:19] LABS: Glucose GTT-Gestational 2 Hr 153 mg/dL (<165)
[2024-08-26 10:53] LABS: Glucose GTT-Gestational 3 Hr 108 L (<145)
== END | disposition home or self-care (01) ==
PROVIDERS: Referring Provider Obstetrics & Gynecology; Visit Provider Obstetrics & Gynecology
DX: O09.299 Supervision of pregnancy with other poor reproductive or obstetric history, unspecified trimester (principal); Z86.32 Personal history of gestational diabetes; Z13.1 Encounter for screening for diabetes mellitus; Z3A.00 Weeks of gestation of pregnancy not specified
CPT/HCPCS: 36415; 82951; 82952; 82962

== ENCOUNTER → 2024-09-20 | Outpatient (CLI) | payer OTHER, SELFPAY ==
--- NOTE | 2024-09-20 09:23 | US_ITS ---
Refer to OB ultrasound. Electronically Signed: Ghulam Valenzuela MD at 13:39 EST , STUDY: SECOND AND THIRD TRIMESTER OBSTETRICAL ULTRASOUND - TWIN REASON FOR EXAM: Female, 28 years old. LMP: 02/03/2024 growth scan 32wks TECHNIQUE: Transabdominal TECHNICAL QUALITY: Adequate. COMPARISON: 08/23/2024 FINDINGS: There are two intrauterine fetuses. Two discrete placenta common consistent with a dichorionic . Placenta is anterior and posterior. The amniotic membrane cannot be visualized. There is a normal amniotic fluid volume within each amniotic sac. The uterine wall is normal. There is a competent closed cervical os. The cervix measures cm in length. The bilateral adnexal regions are normal. Fetus A demonstrates external genitalia. Fetus A demonstrates cardiac activity with a heart rate of 143 bpm. Fetus ?A? is in an transverse lie with the head on the maternal right side. Fetus B demonstrates external genitalia. Fetus B demonstrates cardiac activity with a heart rate of 140 bpm. Fetus B is in a cephalic presentation. FETUS A BIOMETRY: BPD: 8.2 cm: 33 weeks, 1 days HC: 29.8 cm: 33 weeks, 1 days AC: 26.9 cm: 31 weeks, 0 days FL: 6.0 cm: 31 weeks, 1 days CI: 79.38 FL/BPD: 72.41 FL/HC: 19.98 FL/AC: 22.23 HC/AC: 1.11 age by current US: 32 weeks, 2 days. ARACELI by current US: 11/13/2024. Estimated weight: 1762 grams, +/- 264 grams, 10 %. age by prior US: weeks, days. ARACELI by prior US: . Age by LMP: 32 weeks, 6 days. ARACELI by LMP: 11/09/2014. FETUS B BIOMETRY: BPD: 8.2 cm: 33 weeks, 0 days HC: 29.8 cm: 33 weeks, 0 days AC: 28.0 cm: 32 weeks, 0 days FL: 6.3 cm: 32 weeks, 5 days CI: 78.98 FL/BPD: 76.76 FL/HC: 21.15 FL/AC: 22.53 HC/AC: 1.06 age by current US: 32 weeks, 5 days. ARACELI by current US: 11/10/2024. Estimated weight: 1989 grams, +/- 298 grams, 30 %. age by prior US: weeks, days. ARACELI by previous US: . Age by LMP: 32 weeks, 6 days. ARACELI by LMP: 11/09/2024. US/OB Limited With Biometrics IMPRESSION: Normal intrauterine . Electronically Signed: Ghulam Valenzuela MD at 13:39 EST ,
--- NOTE | 2024-09-20 10:44 | US_ITS ---
STUDY: OBSTETRICAL ULTRASOUND - BIOPHYSICAL PROFILE REASON FOR EXAM: Female, 28 years old WELL BEING. and lt;10% LMP: 02/03/2024 PRIOR ULTRASOUND: 08/23/2024 TECHNIQUE: Transabdominal TECHNICAL QUALITY: Adequate. FINDINGS: There is a twin gestation. Fetus a is in a transverse lie with the head on the maternal right side. There is demonstrated cardiac activity with a heart rate of 155 bpm. There is a normal amniotic fluid volume. The largest amniotic fluid pocket measures 4.5 cm. The amniotic fluid index (RAMSEY) is cm. The placenta is anterior in location and is not low lying. There are Grade 2 placental changes. Age by LMP: 32 weeks, 6 days. ARACELI by LMP: 11/09/2024. BIOPHYSICAL PROFILE: Breathing Movements (FBM): 2 Gross Body Movements (GBM): 2 Tone (FT): 2 Amniotic Fluid Volume (AFV): 2 TOTAL SCORE: IMPRESSION: Normal biophysical profile of 05/05. Electronically Signed: Ghulam Valenzuela MD at 13:43 EST , STUDY: OBSTETRICAL ULTRASOUND - BIOPHYSICAL PROFILE REASON FOR EXAM: Female, 28 years old WELL BEING. and lt;10% LMP: 02/03/2024 PRIOR ULTRASOUND: 08/23/2024 TECHNIQUE: Transabdominal TECHNICAL QUALITY: Adequate. FINDINGS: There is a twin gestation. Fetus B is in a cephalic presentation. There is demonstrated cardiac activity with a heart rate of 143 bpm. There is a normal amniotic fluid volume. The largest amniotic fluid pocket measures 5.2 cm. The amniotic fluid index (RAMSEY) is cm. The placenta is posterior in location and is not low lying. There are Grade 2 placental changes. Age by LMP: 32 weeks, 6 days. ARACELI by LMP: 11/09/2024. BIOPHYSICAL PROFILE: Breathing Movements (FBM): 2 Gross Body Movements (GBM): 2 Tone (FT): 2 Amniotic Fluid Volume (AFV): 2 TOTAL SCORE: US/Biophysical Prof W/O Non Stres IMPRESSION: Normal biophysical profile of 05/05. Electronically Signed: Ghulam Valenzuela MD at 13:45 EST ,
== END | disposition home or self-care (01) ==
LOC: US 09:21
PROVIDERS: Referring Provider Obstetrics & Gynecology; Visit Provider Obstetrics & Gynecology
DX: O30.043 Twin pregnancy, dichorionic/diamniotic, third trimester (principal); Z3A.32 32 weeks gestation of pregnancy
CPT/HCPCS: 76816; 76819

== ENCOUNTER → 2024-10-03 | Outpatient (CLI) | payer OTHER, SELFPAY ==
--- NOTE | 2024-10-03 13:33 | US_ITS ---
HISTORY: wellbeing -- Twins. TECHNIQUE: Transabdominal pelvic ultrasound was performed. 52 images. COMPARISON: 09/20/2024. FINDINGS: INTRAUTERINE GESTATION(s): Twin. Baby A- PRESENTATION: Cephalic. PLACENTA: Anterior, grade 2. No placenta previa. HEART MOTION: 147 bpm. AMNIOTIC FLUID: Maximum vertical pocket 4.8 x 6.1 cm. BIOPHYSICAL PROFILE (BPP): 8 -- Breathin/2. -- Movement: 2/2. -- Tone: 2/2. --RAMSEY: 2/2. Baby B- PRESENTATION: Cephalic, oblique right. PLACENTA: Posterior, grade 2. No placenta previa. HEART MOTION: 138 bpm. AMNIOTIC FLUID: Maximum vertical pocket 3 x 4.4 cm. BIOPHYSICAL PROFILE (BPP): 88 -- Breathin/2. -- Movement: 2/2. -- Tone: 2/2. --RAMSEY: 2/2. IMPRESSION: Living twin intrauterine with normal biophysical profile scores. Electronically Signed: Roopa Patel MD at 15:42 EST , HISTORY: wellbeing -- Twins. TECHNIQUE: Transabdominal pelvic ultrasound was performed. 52 images. COMPARISON: 09/20/2024. FINDINGS: INTRAUTERINE GESTATION(s): Twin. Baby A- PRESENTATION: Cephalic. PLACENTA: Anterior, grade 2. No placenta previa. HEART MOTION: 147 bpm. AMNIOTIC FLUID: Maximum vertical pocket 4.8 x 6.1 cm. BIOPHYSICAL PROFILE (BPP): 88 -- Breathin/2. -- Movement: 2/2. -- Tone: 2/2. --RAMSEY: 2/2. Baby B- PRESENTATION: Cephalic, oblique right. PLACENTA: Posterior, grade 2. No placenta previa. HEART MOTION: 138 bpm. AMNIOTIC FLUID: Maximum vertical pocket 3 x 4.4 cm. BIOPHYSICAL PROFILE (BPP): 05/05 -- Breathin/2. -- Movement: /2. -- Tone: /2. --RAMSEY: 2/2. US/Biophysical Prof W/O Non Stres
== END | disposition home or self-care (01) ==
PROVIDERS: Referring Provider Nurse Practitioner Women's Health; Visit Provider Nurse Practitioner Women's Health
DX: O09.93 Supervision of high risk pregnancy, unspecified, third trimester (principal); Z3A.00 Weeks of gestation of pregnancy not specified; O30.043 Twin pregnancy, dichorionic/diamniotic, third trimester
CPT/HCPCS: 76819

== ENCOUNTER 2024-10-10 12:06 | Outpatient (CLI) | payer OTHER, SELFPAY ==
--- NOTE | 2024-10-10 12:30 | US_ITS ---
STUDY: OBSTETRICAL ULTRASOUND - BIOPHYSICAL PROFILE REASON FOR EXAM: Female, 28 years old wellbeing -- Twins . Twin A LMP: February 03, 2024. PRIOR ULTRASOUND: Comparison is made with prior study dated October 03, 2024. TECHNIQUE: Transabdominal TECHNICAL QUALITY: Adequate. FINDINGS: There is a single intrauterine fetus. The fetus is in a cephalic presentation. There is demonstrated cardiac activity with a heart rate of 150 bpm. There is a normal amniotic fluid volume. The largest amniotic fluid pocket measures 5.9 cm. The amniotic fluid index (RAMSEY) is within normal limits. The placenta is anterior in location and is not low lying. There are Grade 2 placental changes. Age by LMP: 35 weeks, 5 days. ARACELI by LMP: November 09, 2024. BIOPHYSICAL PROFILE: Breathing Movements (FBM): 2 Gross Body Movements (GBM): 2 Tone (FT): 2 Amniotic Fluid Volume (AFV): 2 TOTAL SCORE: 8 / 8 IMPRESSION: Normal biophysical profile of 88. Electronically Signed: Jose David Coffey MD at 14:10 EST , STUDY: OBSTETRICAL ULTRASOUND - BIOPHYSICAL PROFILE REASON FOR EXAM: Female, 28 years old wellbeing -- Twins . Twin B LMP: February 03, 2024. PRIOR ULTRASOUND: Comparison is made with prior study dated October 03, 2024. TECHNIQUE: Transabdominal TECHNICAL QUALITY: Adequate. FINDINGS: There is a single intrauterine fetus. The fetus is in a cephalic presentation. There is demonstrated cardiac activity with a heart rate of 160 bpm. There is a normal amniotic fluid volume. The largest amniotic fluid pocket measures 5.4 cm. The amniotic fluid index (RAMSEY) is within normal limits. The placenta is posterior in location and is not low lying. There are Grade 2 placental changes. Age by LMP: 35 weeks, 5 days. ARACELI by LMP: November 09, 2024.. BIOPHYSICAL PROFILE: Breathing Movements (FBM): 2 Gross Body Movements (GBM): 2 Tone (FT): 2 Amniotic Fluid Volume (AFV): 2 TOTAL SCORE: US/Biophysical Prof W/O Non Stres IMPRESSION: Normal biophysical profile of 05/05. Electronically Signed: Jose David Coffey MD at 14:11 EST ,
[2024-10-10 13:04] VITALS: BMI 27.8
[2024-10-10] MEDS: Betamethasone/Betamethasone 30 MG/5 ML Vial 12 MG IM (13:36)
== END 2024-10-10 13:39 | disposition home or self-care (01) ==
LOC: OPUS 12:26 → WPOUT 13:03 → WP 13:03
PROVIDERS: Referring Provider Nurse Practitioner Women's Health; Visit Provider Nurse Practitioner Women's Health
DX: O30.043 Twin pregnancy, dichorionic/diamniotic, third trimester (principal); Z3A.36 36 weeks gestation of pregnancy

== ENCOUNTER 2024-10-11 05:19 | Inpatient (IN) | payer OTHER, SELFPAY ==
[2024-10-11] VITALS (34 sets, daily range): BP systolic 113–170; BP diastolic 60–105; PULSE 74–117; RESP 14–18; TEMP 36.6–36.7; O2SAT 84–100; BMI 27.3
--- NOTE | 2024-10-11 05:36 | NURSING ---
2nd child was adopted out. mother has two living children currently in her custody.
[2024-10-11] MEDS: Lactated Ringers 1,000 ML 999 ML IV (05:40)
[2024-10-11 06:00] LABS: Group B Strep DNA By PCR Negative (Negative); Internal Control PASS; Probe Check PASS; Specimen Processing Control PASS
[2024-10-11 06:01] LABS: Absolute Lymphocyte Count 1.24 X10^3/uL (0.83-4.51); Absolute Neutrophil Count 10.4 X10^3/uL (2.0-7.7); Basophil# 0.02 X10^3/uL; Basophil% 0.2 % (0-1); Hemoglobin 13.4 g/dL (12.0-15.0); Lymphocyte # 1.24 X10^3/ul (0.83-4.51); Lymphocyte % 10.2 % (19-41); Mean Corp Hgb Conc 35.3 g/dL (32-36); Mean Corpuscular Hgb 33.2 pg (27.0-32.0); Mean Corpuscular Volume 94.1 fL (81-99); Mean Platelet Vol. 12.4 fl (6.2-12.0); Monocyte# 0.31 X10^3/uL; Monocyte% 2.6 % (0-10); NRBC Flagged by Analyzer 0 % (0-5); Neutrophil # 10.41 X10^3/uL (2.7-7.7); Platelet Count 165 K/mm3 (150-450); RBC Distribution Width CV 11.6 % (11.6-14.6); RBC Distribution Width SD 39.8 fl (35.1-43.9); Red Blood Count 4.04 M/mm3 (4.2-5.4); White Blood Count 12.1 K/mm3 (4.4-11.0)
--- NOTE | 2024-10-11 06:49 | HP.PCM.OB_ITS ---
HPI - General General Date of Admission: 10/11/24 HPI Narrative EDGAR BEAL, is a 28 y/o Di/Di twins @ 35 weeks 6 days who presents to L&D in active labor. She presented around 4 am and was 3 cm dilated and tony every 4 minutes. The contractions picked up to every minute and she changed her cervix to 4 then 5 cm by 6:30. She requested an epidural and that is being placed now. Maternal Data Information ARACELI Calculator Estimated Delivery Date Method Current WG Current Estimate 11/09/24 LMP (Certain) 35w 6d # 2 PFSH PFSH Medical History Family history of hearing loss at age younger than 7 years Gestational diabetes Dermoid cyst Kidney calculi Home Medications ?Medication ?Instructions ?Recorded ?Last Taken ?Type multivitamin no.47-iron fum 27 1 cap PO DAILY 03/25/24 10/10/24 18:00 History mg-folate no.1 1 mg-dha 300 mg capsule (PNV-DHA) Allergy/AdvReac Type Severity Reaction Status Date / Time No Known Allergies Allergy Verified 10/11/24 03:55 Family History Father Hypertension Prostate cancer Grandfather Prostate cancer Surgical History History of laparotomy History of surgery History of lithotripsy Social History adopted: No household members: spouse number of children: 2 current occupational status: employed current occupation: Nurse [employer] pets and animals: No history of recent travel: Yes ([place] October) out of state: Yes out of country: Yes sexually active: Yes Smoking Status: Never smoker alcohol intake: current alcohol intake frequency: holidays/special occasions only details: Not while substance use type: does not use well-balanced diet: daily or most days caffeine: Yes Type: coffee Number of servings: 1 eating out: 1-3 times/week during the past year weight has: remained stable what type of physical activity do you participate in: walking and weight training frequency: 3-4 times per week duration: 30-45 minutes/day rich/congregational: None seatbelt use: always do you feel safe at home: Yes 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 Date Name GA/Weeks Outcome Route Bth Weight Gen Labor Lgth Anesthesia Del Locatn Provider FOB Unknown DIANA 2017 live - full term 7#? Female Unknown Mian 2014 41 live - full term 7#6oz Male epidural [place], [place] 05/25/23 Miles 39 live - full term 9#0oz Male epidur al [facility] Elizabeth Love CNM Davian Delivery Date: Last Updated by: Dian Echeverria - open adoption Delivery Date: 05/25/23 Last Updated by: Marlyn Carl IOL GDM Visit Details Expected Delivery Route/Plan Labor Preferences- CB/BF classes: [] labor support person: [] labor intervention preferences: [] pain management options preferred: [] cut cord/dad catch: [] : [] PP control planned: [] discussed possible routes of delivery and associated risks: [] special requests: [] Plans Covid status: [] Flu vaccine: declined Tdap vaccine: next visit Rhogam: [] LARC form signed: [] movement and labor precautions reviewed. Problem list reviewed and updated with the most current plan of care details and appropriate orders placed. Relevant counseling for the gestational age provided. Continue routine care and follow up unless otherwise noted in visit notes/problem list details OB Flowsheet Initial Weight: Not Recorded Date -?-?-?-?-?-?-?-?-?-?-?-?- EGA Weight BP Urine Prot -?-?-?-?-?-?-?-?-?-?-?-?- Glucose FHR FuHt Pres Dilation -?-?-?-?-?-?-?-?-?-?-?-?- Effaced St Visit Note 04/06/24 -?-?-?-?-?-?-?-?-?-?-?-?- 9w 0d 168 lb 107/68 -?-?-?-?-?-?-?-?-?-?-?-?- A 160 -?-?-?-?-?-?-?-?-?-?-?-?- B 165 A -?-?-?-?-?-?-?-?-?-?-?-?- B -?-?-?-?-?-?-?-?-?-?-?-?- A -?-?-?-?-?-?-?-?-?-?-?-?- B A KW- NOB at [facility]-had formal US with [facility]. Has MFM consult next week for twins. Labs encouraged prior to next appt. Declines NIPT. -?-?-?-?-?-?-?-?-?-?-?-?- B 05/09/24 -?-?-?-?-?-?-?-?-?-?-?-?- 13w 5d 171 lb 8 oz 138/77 Nega tive -?-?-?-?-?-?-?-?-?-?-?-?- Negative A 157 -?-?-?-?--?-?-?-?-?-?-?-?- B 165 A -?-?-?-?-?-?-?-?-?-?-?-?- B -?-?-?-?-?-?-?-?-?-?-?-?- A -?-?-?-?-?-?-?-?-?-?-?-?- B A JV-low risks di/ di twin gestation on NIPT. heart tones today. planning anatomy scan with [facility]. -?-?-?-?-?-?-?-?-?-?-?-?- B 06/07/24 -?-?-?-?-?-?-?-?-?-?-?-?- 17w 6d 178 lb 115/75 Negative -?-?-?-?-?-?-?-?-?-?-?-?- Negative A 150 -?-?-?-?-?-?-?-?-?-?-?-?- B 148 A -?-?-?-?-?-?-?-?-?-?-?-?- B -?-?-?-?-?-?-?-?-?-?-?-?- A -?-?-?-?-?-?-?-?-?-?-?-?- B A SM- no vb lof go od fm -?-?-?-?-?-?-?-?-?-?-?-?- B 07/05/24 -?-?-?-?-?-?-?-?-?-?-?-?- 21w 6d 187 lb 125/72 Negative -?-?-?-?-?-?-?-?-?-?-?-?- Negative A 160 -?-?-?-?-?-?-?-?-?-?-?-?- B 135 A -?-?-?-?-?-?-?-?-?-?-?-?- B -?-?-?-?-?-?-?-?-?-?-?-?- A -?-?-?-?-?-?-?-?-?-?-?-?- B A SM- no vb lof go od fm no regular ctx -?-?-?-?-?-?-?-?-?-?-?-?- B 08/03/24 -?-?-?-?-?-?-?-?-?-?-?-?- 26w 0d 191 lb 2 oz 123/69 Nega tive -?-?-?-?-?-?-?-?-?-?-?-?- Negative A 126 -?-?-?-?-?-?-?-?-?-?-?-?- B 133 A Cephalic -?-?-?-?-?-?-?-?-?-?-?-?- B Cephalic -?-?-?-?-?-?-?-?-?-?-?-?- A -?-?-?-?-?-?-?-?-?-?-?-?- B A JV- pt has chose n to do the 3 hr gtt due to her history of GDM. She will return in 2 weeks for rhogam work up. will need growth scan also coming up. -?-?-?-?-?-?-?-?-?-?-?-?- B 08/23/24 -?-?-?-?-?-?-?-?-?-?-?-?- 28w 6d 197 lb 125/68 Negative -?-?-?-?-?-?-?-?-?-?-?-?- Negative A 140 -?-?-?-?-?-?-?-?-?-?-?-?- B 145 34 A -?-?-?-?-?-?-?-?-?-?-?-?- B -?-?-?-?-?-?-?-?-?-?-?-?- A -?-?-?-?-?-?-?--?-?-?-?-?- B A SM- no vb lof go od fm no ergular ctx -?-?-?-?-?-?-?-?-?-?-?-?- B 09/06/24 -?-?-?-?-?-?-?-?-?-?-?-?- 30w 6d 198 lb 117/74 Negative -?-?-?-?-?-?-?-?-?-?-?-?- Negative A 145 -?-?-?-?-?-?-?-?-?-?-?-?- B 135 35 A Cephalic -?-?-?-?-?-?-?-?-?-?-?-?- B Cephalic -?-?-?-?-?-?-?-?-?-?-?-?- A -?-?-?-?-?-?-?-?-?-?-?-?- B A SM- no vb lof go od fm no reuglar ctx -?-?-?-?-?-?-?-?-?-?-?-?- B 09/19/24 -?-?-?-?-?-?-?-?-?-?-?-?- 32w 5d 202 lb 127/88 Negative -?-?-?-?-?-?-?-?-?-?-?-?- Negative A 130 -?-?-?-?-?-?-?-?-?-?-?-?- B 120 A Breech Cephalic -?-?-?-?-?-?-?-?-?-?-?-?- B Cephalic Breech -?-?-?-?-?-?-?-?-?-?-?-?- A -?-?-?-?-?-?-?-?-?-?-?-?- B A SM- no vb lof go od fm no reuglar ctx -?-?-?-?-?-?-?-?-?-?-?-?- B 10/06/24 -?-?-?-?-?-?-?-?-?-?-?-?- 35w 1d 208 lb 148/91 Trace -?-?-?-?-?-?-?-?-?-?-?-?- Negative A 145 -?-?-?-?-?-?-?-?-?-?-?-?- B 140 A Cephalic -?-?-?-?-?-?-?-?-?-?-?-?- B Cephalic -?-?-?-?-?-?-?-?-?-?-?-?- A -?-?-?-?-?-?-?-?-?-?-?-?- B A KW- no vb/lof/ct x. good fm. had BPP today. doing well. planning GBS next week -?-?-?-?-?-?-?-?-?-?-?-?- B ROS Constitutional Constitutional: Denies change in weight, fatigue, fever(s), headache(s), poor appetite or weakness Eyes Eyes: Denies blurry vision, change in vision, seeing flashes or spots in vision ENT HEENT: Denies dizziness, headache(s), loss taste/smell or sore throat Cardiovascular Cardiovascular: Denies chest pain, dizziness, dyspnea, irregular heart rhythm, leg edema, palpitations, rapid heart rate or vomiting Respiratory/Chest Respiratory/Chest: Denies chest tightness, cough, dyspnea or breast pain Gastrointestinal Gastrointestinal: Denies abdominal pain, anorexia, constipation, cramping, diarrhea, hemorrhoids, vomiting or weight changes Genitourinary Genitourinary: Denies dysuria, flank pain, genital lesions, genital pain, urinary frequency or urinary urgency Musculoskeletal Musculoskeletal: Denies back pain, difficulty walking, joint pain, limited range of motion, muscle cramps or numbness Integumentary Integumentary: Denies lesions or unusual bruising Neurologic Neurologic: Denies abnormal movements, abnormal speech, dizziness, numbness, seizure-like activity or syncope Psychiatric Psychiatric: Denies anxiety, behavioral changes, change in appetite, change in libido, cognitive impairment, confusion, depression, difficulty concentrating, hallucinations or suicidal thoughts Endocrine Endocrinology: Denies excessive sweating, polydipsia or polyuria Hematologic/Lymphatic Hematologic/Lymphatic: Denies easy bleeding, easy bruising or lymphadenopathy Allergic/Immunologic Allergic/Immunologic: Denies itchy eyes, lip swelling, seasonal rhinorrhea, rhinitis, throat swelling, tongue swelling, eczemia, wheezing or asthma Vital Signs Vital Signs Vital Signs: 10/11/24 03:57 10/11/24 03:57 10/11/24 03:58 Temperature Temperature Source Temporal Pulse Rate 80 Respiratory Rate Blood Pressure 133/76 H BP Systolic 133 BP Diastolic 76 Pulse Ox 10/11/24 03:58 10/11/24 03:58 10/11/24 03:58 Temperature 97.8 F Temperature Source Pulse Rate Respiratory Rate 16 Blood Pressure BP Systolic BP Diastolic Pulse Ox 95 10/11/24 05:52 10/11/24 05:52 10/11/24 05:52 Temperature 97.8 F Temperature Source Temporal Pulse Rate Respiratory Rate 16 Blood Pressure BP Systolic BP Diastolic Pulse Ox 10/11/24 05:53 10/11/24 05:53 10/11/24 06:29 Temperature Temperature Source Pulse Rate 77 105 H Respiratory Rate Blood Pressure 129/88 H BP Systolic 129 BP Diastolic 88 Pulse Ox 10/11/24 06:29 10/11/24 06:30 10/11/24 06:30 Temperature Temperature Source Pulse Rate 108 H Respiratory Rate Blood Pressure 170/97 H BP Systolic 170 BP Diastolic 97 Pulse Ox 98 10/11/24 06:31 10/11/24 06:31 10/11/24 06:34 Temperature Temperature Source Pulse Rate 99 112 H Respiratory Rate Blood Pressure 163/95 H BP Systolic 163 BP Diastolic 95 Pulse Ox 10/11/24 06:34 10/11/24 06:35 10/11/24 06:35 Temperature Temperature Source Pulse Rate 100 Respiratory Rate Blood Pressure 166/91 H BP Systolic 166 BP Diastolic 91 Pulse Ox 100 10/11/24 06:39 10/11/24 06:39 10/11/24 06:43 Temperature Temperature Source Pulse Rate 100 Respiratory Rate Blood Pressure 142/82 H BP Systolic 142 BP Diastolic 82 Pulse Ox 99 10/11/24 06:43 10/11/24 06:44 10/11/24 06:44 Temperature Temperature Source Pulse Rate 103 H 91 Respiratory Rate Blood Pressure BP Systolic BP Diastolic Pulse Ox 99 10/11/24 06:47 10/11/24 06:47 10/11/24 06:49 Temperature Temperature Source Pulse Rate 94 95 Respiratory Rate Blood Pressure 120/66 BP Systolic 120 BP Diastolic 66 Pulse Ox Weight Weight: 206 lb 12.697 oz Body Mass Index (BMI) 27.3 Physical Exam Const alert, oriented x3, no apparent distress and healthy appearing General Appearance: cooperative; Negative for anxious HEENT normocephalic Face and Sinus: normal facial exam Eyes EOMs intact bilaterally and no scleral icterus General Eye: normal appearance of both eyes Neck full ROM and supple Lymph Lymphatic: no lymphadenopathy noted Chest Chest: abnormal inspection of the chest Resp normal respiratory effort Effort and Inspection: able to speak in complete sentences Cardio regular rate GI soft to palpation and non-tender Inspection: gravid Palpation: soft; Negative for tender external exam normal Back/Spine no CVA tenderness Extremity normal to inspection, full ROM and no clubbing, cyanosis or edema General Extremity: Negative for calf tenderness or edema Skin Lesions: no lesions Rashes: no rashes Psych mental status grossly normal Labs Labs Labs: Blood Type A NEGATIVE Antibody Screen NEGATIVE Hct 38.0 % (37-47) Hgb 13.4 g/dL (12.0-15.0) Pap Smear Negative Obstetrics Ultrasound Syphilis Total Ab Non-reactive Rubella IgG Antibody Reactive (Nonreactive) Hep Bs Antigen Non-Reactive (Nonreactive) Hepatitis C Antibody Non-Reactive (Nonreactive) Chlamydia DNA (RUDI) Negative (Negative) N.gonorrhoeae DNA (RUDI) Negative (Negative) HIV 1&2 Antibody Non-Reactive (Nonreactive) Glucose 1 Hr 50 gm 148 mg/dL (70-140) H Gest Glucose Tolerance MG/DL Group B Strep DNA Negative (Negative) Assessment & Plan (1) Dichorionic diamniotic twin : QUALIFIERS: Trimester: third trimester Qualified Code(s): O30.043 - Twin , dichorionic/diamniotic, third trimester COMMENT: Deliver @ 38 wks, s/p MFM consult, US at 11-13 weeks for NT, 2 X wkly BPP at 36 weeks, wkly dopplers, growth US q4 weeks. patient declined MFM scans, plan fu scans with [facility]. 09/20 - Growth Baby A 9.6%, Baby B 30.6%. 09/23 MFM Consult IUGR Baby A 1907gm AC 2%, Baby B 2283 gm (2) History of gestational diabetes mellitus (GDM) in prior , currently : COMMENT: A1C with NOB labs -nl (3) Rh negative state in antepartum period: COMMENT: Rhogham @ 28 wks & PRN bleeding (4) Supervision of high-risk : QUALIFIERS: Trimester: third trimester Qualified Code(s): O09.93 - Supervision of high risk , unspecified, third trimester COMMENT: PRR, , ARACELI 11/09/24, girls brenda chowdary TRISTEN Pappas,([place]- given up for adoption), Miles Davian (5) : QUALIFIERS: Weeks of gestation: 35 weeks Qualified Code(s): Z3A.35 - 35 weeks gestation of COMMENT: declined genetic & carrier testing, nl anatomy. PLAN: Plan Patient presents IAL, plan expectant management for , pitocin/AROM PRN if needed. Pain management: plans epidural. GBS unknown plan IV PCN. Management of any complications: twin A with IUGR I have reviewed the [facility] and made any clinically relevant updates.
[2024-10-11] MEDS: Lactated Ringers 1,000 ML 50 ML IV (06:56)
[2024-10-11] MEDS: Penicillin G Pot 5,000,000 UNITS in 0.9% Normal Saline (100mL MB+) 100 ML 150 UNITS IV (06:57)
[2024-10-11] MEDS: fentaNYL-bupivacaine (epidural) 100 ML BAG EPIDURAL (06:59)
[2024-10-11] MEDS: Ondansetron 4 MG/2 ML Vial IV (07:09)
[2024-10-11] MEDS: Famotidine 200 MG/20 ML MDV 20 MG in 0.9% Normal Saline (Pres. free 8 ML 300 MG IV (07:10)
[2024-10-11] MEDS: 0.9% Saline Lock 10 ML Syringe IV (07:10)
[2024-10-11 09:03] LABS: Syphilis Antibodies Non-reactive
[2024-10-11] MEDS: Oxytocin 15 Units/NS 250ml 15 UNITS/250 ML IV.SOLN 334 UNITS IV (11:29)
[2024-10-11] MEDS: Oxytocin 15 Units/NS 250ml 15 UNITS/250 ML IV.SOLN 83 UNITS IV (12:15)
--- NOTE | 2024-10-11 13:27 | EX.PCM.OBVAG ---
Assessment & Plan (1) Dichorionic diamniotic twin : QUALIFIERS: Trimester: third trimester Qualified Code(s): O30.043 - Twin , dichorionic/diamniotic, third trimester COMMENT: Deliver @ 38 wks, s/p MFM consult, US at 11-13 weeks for NT, 2 X wkly BPP at 36 weeks, wkly dopplers, growth US q4 weeks. patient declined MFM scans, plan fu scans with [facility]. 09/20 - Growth Baby A 9.6%, Baby B 30.6%. 09/23 MFM Consult IUGR Baby A 1907gm AC 2%, Baby B 2283 gm (2) History of gestational diabetes mellitus (GDM) in prior , currently : COMMENT: A1C with NOB labs -nl (3) Rh negative state in antepartum period: COMMENT: Rhogham @ 28 wks & PRN bleeding (4) Supervision of high-risk : QUALIFIERS: Trimester: third trimester Qualified Code(s): O09.93 - Supervision of high risk , unspecified, third trimester COMMENT: PRR, , ARACELI 11/09/24, girls lavjose eduardor ricarda Pappas,([place]-given up for adoption), Ankit Davian (5) : QUALIFIERS: Weeks of gestation: 35 weeks Qualified Code(s): Z3A.35 - 35 weeks gestation of COMMENT: declined genetic & carrier testing, nl anatomy. (6) Vaginal delivery: COMMENT: SM twins Lavendar Sonja 35 ptl Maternal Data Information ARACELI Calculator Estimated Delivery Date Method Current WG Current Estimate 11/09/24 LMP (Certain) 35w 6d # 2 Vaginal Delivery Maternal Presentation Maternal Presentation: see assessment and plan Vaginal Delivery Information Procedure Performed: Spontaneous Vaginal Delivery Surgeon/Practitioner: Oliva Pierre Pre-Procedure Diagnosis: see assessment and plan Post-Procedure Diagnosis: same Type of anesthesia: Epidural Findings Description of procedure: Patient began pushing and was noted to be mentum anterior presentatoin. the head was rotated to gerardo and she pushed and delivered the head in the GERARDO presentation. The head was delivered atraumatically . The anterior and posterior shoulders delivered without complication followed by the rest of the and the infant was placed on the maternal abdomen. Delayed cord clamping was employed for approximately 30 seconds. Cord was clamped and cut. second membranes were ruptured and within a few contractions she was complete, pushed and also noted to be mentum anterior presentation, which the infants head was rotated to SITA position and the tolerated it well, she pushed and delivered the head in the SITA presentation. The head was delivered atraumatically . The anterior and posterior shoulders delivered without complication followed by the rest of the and the was placed on the maternal abdomen. Delayed cord clamping was employed for approximately 30 seconds. and gentle traction was applied to the cord and the placentas delivered spontaneously immediately following it was noted to be intact with three-vessel cord x 2. The perineum and vagina were inspected and noted to have no laceration. EBL was 400. Patient and infants tolerated delivery well. Presentation: Vertex Placental Delivery Description: Spontaneous Specimen collected: Yes Description of specimen(s) removed: placenta Jewel Stripper estate planning paralegal: No Post Vaginal Deli Medications given after delivery: Other (pitocin) Complication Complications: No Baby B Information Amniotic Membrane Rupture Type: Artificial Presentation: SITA Operative Information Mode of Delivery: Vaginal Cord Entanglement: Around neck x 1, loose Delayed Cord Clamping: Yes Multi Select Codes Urinary/Genital Urinary/Genital CPT Codes: 40501 Vaginal Delivery [facility]
[2024-10-11] MEDS: Naproxen 500 MG Tablet PO (20:25)
--- NOTE | 2024-10-11 21:33 | DCINST_ITS ---
Discharge Instructions Diet Discharge Diet: No restrictions DC O2, CPAP, BIPAP needs Home O2 Discharge instructions: No Dressing / Incision Discharge Activity: Return to Normal Activity, May Not Drive (while taking narcotic pain medications.) and May Shower May resume sexual activity in: 4-6 weeks Dressing / Incision Call your doctor if your incision/area has: Continuous Slow Oozing, Sudden Increased Bleeding, Increased Pain/ Swelling, Increased Redness and Foul Smelling Discharge Follow Up Care Please Follow Up With: Oliva Pierer MD When: Call [phone] to make an appointment with your doctor in 6 weeks. If you had elevated blood pressure or 4th degree laceration, you will need to be seen in 2 weeks. Test Results: Test results from this visit will be discussed in further detail at your follow- up appointment, if applicable. Discharge Plan Admission Admit Date/Time: 10/11/24 05:19 Attending Provider: Shanika Espinosa Primary Care Provider: Care Physician,Fabiola Primary Discharge Orders/Prescriptions Prescriptions: No Action PNV-DHA 27 mg iron-1 mg -300 mg capsule 1 cap PO DAILY Referrals / Follow Up: Care Physician,No Primary [Primary Care Provider] - Disposition Disposition (needs filled in before D/C Order can be placed): Home, Self Care
[2024-10-12] MEDS: Acetaminophen 500 MG Tablet 1000 MG PO (01:09)
[2024-10-12 01:10] VITALS: BP 132/93; PULSE 61; RESP 16; TEMP 36.7; O2SAT 96
[2024-10-12 04:00] VITALS: BP 120/89; PULSE 56; RESP 16; TEMP 36.7; O2SAT 96
--- NOTE | 2024-10-12 08:02 | PCM.PN.OB ---
Subjective Subjective Patient doing well without complaints. Tolerating PO. Ambulating and voiding without difficulty. Feeding well. Denies chest pain, shortness of breath, calf pain/swelling, fevers, chills, lightheadedness. Twin girls doing well. Objective Data Objective Data Vital Signs: Vital Signs Temp Pulse Resp BP Pulse Ox O2 Del Method 98.0 F 56 L 16 120/89 H 96 Room Air 10/12/24 04:00 10/12/24 04:00 10/12/24 04:00 10/12/24 04:00 10/12/24 04:00 10/12/24 04:00 Oxygen Delivery Method Room Air Weight: 206 lb 12.697 oz Body Mass Index (BMI) 27.3 Intake & Output: Intake and Output for Last 24 Hours 10/10/24 10/11/24 10/12/24 23:59 23:59 23:59 Intake Total 2475.00 / 2475.00 Output Total 1100 / 1100 Balance 1375.00 / 1375.00 Lab / Micro Data 10/11/24 05:40 Labs: Laboratory Results - last 24 hr 10/11/24 05:40: Syphilis Total Ab Non-reactive, Antibody Identification ANTI-D Physical Exam Const alert and oriented x3 HEENT normocephalic Eyes PERRL Neck full ROM Resp normal respiratory effort GI soft to palpation GI Narrative: FF below U Assessment & Plan (1) Vaginal delivery: COMMENT: SM twins Lavendar Sonja 35 ptl (2) Rh negative state in antepartum period: COMMENT: Rhogham @ 28 wks & PRN bleeding PLAN: Plan s/p PPD # 1 1. routine post delivery care 2. breast feeding- support given 3. rh negative 4. rubella immune
[2024-10-12 08:41] VITALS: BP 112/73; PULSE 76; RESP 16; TEMP 36.2; O2SAT 96
[2024-10-12 14:00] VITALS: BP 118/81; PULSE 70; RESP 16; TEMP 36.4
[2024-10-12 20:20] VITALS: BP 133/74; PULSE 63; RESP 18; TEMP 36.9; O2SAT 100
[2024-10-12] MEDS: Naproxen 500 MG Tablet PO (23:23)
[2024-10-13 03:30] VITALS: BP 126/78; PULSE 93; RESP 14; TEMP 36.6; O2SAT 96
[2024-10-13 08:06] VITALS: BP 127/80; PULSE 50; RESP 16; TEMP 36.3
--- NOTE | 2024-10-13 09:03 | PCM.PN.OB ---
Subjective Subjective Patient doing well without complaints. Tolerating PO. Ambulating and voiding without difficulty. feeding well. Denies chest pain, shortness of breath, calf pain/swelling, fevers, chills, lightheadedness. Objective Data Objective Data Vital Signs: Vital Signs Temp Pulse Resp BP Pulse Ox O2 Del Method 97.3 F L 50 L 16 127/80 H 96 Room Air 10/13/24 08:06 10/13/24 08:06 10/13/24 08:06 10/13/24 08:06 10/13/24 03:30 10/13/24 03:30 Oxygen Delivery Method Room Air Weight: 206 lb 12.697 oz Body Mass Index (BMI) 27.3 Intake & Output: Intake and Output for Last 24 Hours 10/11/24 10/12/24 10/13/24 23:59 23:59 23:59 Intake Total 2475.00 / 2475.00 Output Total 1100 / 1100 Balance 1375.00 / 1375.00 Lab / Micro Data 10/11/24 05:40 ROS Constitutional Constitutional: Reports systems reviewed and no addt'l complaints, except as documented Cardiovascular Cardiovascular: Reports systems reviewed and no addt'l complaints, except as documented Respiratory/Chest Respiratory/Chest: Reports systems reviewed and no addt'l complaints, except as documented Gastrointestinal Gastrointestinal: Reports systems reviewed and no addt'l complaints, except as documented Physical Exam Const alert, oriented x3 and no apparent distress HEENT Head and Scalp: atraumatic Resp normal respiratory effort GI soft to palpation and non-tender Bimanual Exam - Vag & Uterus: uterus non-tender Uterus Palpation: uterus fundus firm (below Umbilicus) Assessment & Plan (1) Vaginal delivery: COMMENT: SM twins Lavendar Sonja 35 ptl PLAN: Plan s/p PPD # 2 1. routine post delivery care 2. breast feeding- support given 3. rh neg rhogam PRN 4. rubella immune
--- NOTE | 2024-10-13 09:04 | DS.PCM_ITS ---
Providers Date of Admission: 10/11/24 Primary Care Physician: Fabiola Primary Care Phys Reason For Visit: VAGINAL Diagnosis Discharge Diagnosis (1) Vaginal delivery: Status: Acute Code(s): O80 - Encounter for full-term uncomplicated delivery Plan s/p PPD # 2 1. routine post delivery care 2. breast feeding- support given 3. rh neg rhogam PRN 4. rubella immune Medications at Discharge Home Medications multivitamin no.47-iron fum 27 mg-folate no.1 1 mg-dha 300 mg capsule (PNV-DHA) 1 cap PO DAILY 03/25/24 Hospital Course Operations None Procedures None Summary of Care Provided Hospital Course: patient presented IAL and proceeded to deliver uncomplicated twins. She a routine recovery post delivery and was stable for discharge to [facility] status due to a baby being under bili lights on PPD 2 Weight / BMI Weight Weight: 206 lb 12.697 oz Body Mass Index (BMI) 27.3 ABG / Lab / Microbiology Data Attestation: I reviewed the patient's lab results. 10/11/24 05:40 D/C Instructions Discharge Diet: No restrictions May resume sexual activity in: 4-6 weeks Weight Bearing Status: Full weight bearing Call your doctor if your incision/area has: Continuous Slow Oozing, Sudden Increased Bleeding, Increased Pain/ Swelling, Increased Redness and Foul Smelling Discharge Call your doctor if you observe: Fever of 101 or Higher, Inability to urinate, Using more than 1 pad per hour, Shortness of breath, Chest pain and Uncontrolled pain DC O2, CPAP, BIPAP Needs Home O2 Discharge instructions: No Please Follow Up With: Oliva Pierre MD When: Call [phone] to make an appointment with your doctor in 6 weeks. If you had elevated blood pressure or 4th degree laceration, you will need to be seen in 2 weeks. Meaningful Use Info Meaningful Use Meaningful Use Diagnoses (Choose all that apply): None applicable Ischemic Stroke Statin Dosing Therapy Reference: STATIN DOSE THERAPY REFERENCE: * Patients > 75 years receive moderate or high dose statin therapy. * Patients 75 years or YOUNGER should receive HIGH intensity statin dose unless contraindicated. You will be required to document reason for non-treatment if statin daily dose does not meet guidelines. HIGH DOSE STATIN THERAPY DAILY Atorvastatin > than or = to 40 mg Rosuvastatin > than or = to 20 mg Amlodipine + Atorvastatin > than or = to 2.5/40 mg Ezetimibe + Simvastatin 10/80 mg Simvastatin 80mg Discharge Plan Admission Admit Date/Time: 10/11/24 05:19 Attending Provider: Shanika Espinosa Primary Care Provider: Care Physician,No Primary Discharge Orders/Prescriptions Prescriptions: No Action PNV-DHA 27 mg iron-1 mg -300 mg capsule 1 cap PO DAILY Referrals / Follow Up: Care Physician,No Primary [Primary Care Provider] - Disposition Disposition (needs filled in before D/C Order can be placed): Home, Self Care
[2024-10-13 14:00] VITALS: BP 142/67; PULSE 64; RESP 16; TEMP 36.4
--- NOTE | 2024-10-14 12:20 | CASEMGMT ---
Social Work Assessment Labor and Delivery Unit Patient Address: [address] [place] [address] [place] [address] Phone number: [phone] Date of Referral: 10/13/24 Time of Referral:? 900 Referred By: Shanika Espinosa Date of Intervention: ?10/14/24? Time of Intervention:? 1140 Reason for Referral:? history of adoption, ex overdose Sw completed chart review and acknowledges social work consult. Sw presented to bedside and introduced self to mother of baby (MOB- So) and father of baby (FOB- Davian). Sw explained reason for sw involvement and completed psychosocial assessment. History obtained from: medical records, MOB and FOB. Household composition: Currently residing in the family home is KYLIE OLIVAREZ, their two older children: Von (9) and Ankit (1). [place] twins will be included in residence when ready for discharge. Parents deny any issues or concerns with housing, reporting their home is safe and secure. Patient's parent/guardian status:? ?SHER and KYLIE have been together for 5 years, they are . Twins are the second and third children for parents together. SHER had a baby in 2018 (Evelyn) whom she arranged an open adoption plan. SHER then had another baby in 2014 (Von) with a partner who she lost later due to a drug overdose. SHER and KYLIE appear to have strong support found in each other. No concerns reported of domestic violence or intimate partner violence. Medical History: ?SHER is 29 year old female who is 5, para 3-5 following labor and delivery of twins. SHER received routine care during with [place]. SHER presented to hospital and delivered babies via vaginal delivery at 35 weeks gestation. Baby A: Calista, was born weighing 5lb 2oz and had apgars of 9 and 9 at one and five minutes of life, respectfully. Baby B: Sonja, was born weighing 6lb 3oz and had apgars of 8 and 9 at one and five minutes of life, respectfully. SHER is breast feeding and supplementing with donor milk. Baby's will be followed by Dr. Cobian for pediatrics. Educational Status:?Both parents graduated from high school and obtained Bachelor's degrees. No concerns with reading, learning or comprehension. Financial Status: Both parents are gainfully employed outside of the home. FOB is an ICU travel nurse and MOB works PRN for [employer]. Infant Supplies: All necessary baby supplies obtained, including: separate car seats and safe sleep space, clothes, diapers and wipes Childcare/Caregiver(s):? MOB will be the primary caregiver to newborns along with FOB and other family members. Transportation:??Both parents have their drivers license and reliable means of transportation. NO barriers. Programs/Agencies Involved: ???Parents are not connected to any community agencies that provide financial assistance as they are over income. Children Services/Legal Issues:??? No prior involvement with children services, no issues or concerns warranting referral to be made at this time. Behavioral Health Issues: ??Mental Health History:??Parents deny mental health diagnoses or concerns. ? Substance Use History: MOB denies mental health history prior to and during . ? Family History: MOB discloses history of having a partner formerly with a substance use addiction/ history. MOB states that that partner from an overdose. Parents deny family history of substance use or significant mental health diagnoses. Drug Screens: No drug screens observed during chart review. Family/Social Stressors:?MOB expresses feeling overwhelmed due to the amount of time it takes to feed babies, and when one cries the other one does too. MOB states that she was able to get some rest, and is okay with supplementing if necessary. Support Systems: MOB states that FOB and both sets of grandparents are their biggest supports. Depression/Shaken Baby/Safe Sleeping: Tra educated parents on signs and symptoms of baby blues and depression and anxiety. MOB states that she did not experience either of these following her other deliveries. MOB states that when she chose adoption for her first baby there were a lot of emotions associated with that, but she worked through them and did not experience any symptoms following her other deliveries. FOB states that if MOB were to struggle with her mental health during this [id number] he would be able to recognize that and would know how to help and support her. Tra educated parents on shaken baby prevention and ABCs of safe sleep. Parents express understanding. ASSESSMENT:?MOB and her twins admitted following labor and delivery. MOB expressing feeling slightly overwhelmed due to the physical requirements having twins requires of her, and already feeling sleep deprived. MOB states that she has a lot of help and support and knows that this time willl go fast. Much support and education provided. MOB encouraged to take things one day at a time and not to put a lot of pressure on herself to exclusively breastfeed. MOB expressed understanding and agreement. FOB observed to be supportive and excited that baby's are here. Both parents interacted and participated in completion of assessment, making eye contact and conversing fluidly. Parents have a lot of supports in place and have obtained all necessary baby supplies for two babies. Help Me Grow information provided and encouraged due to twin / delivery and being born at 35 weeks gestation. Parents denied wanting linkage at this time, but receptive on information on how to get connected if warranted in the future. PLAN:?? No other services requested or indicated. MOB and baby to be discharged when medically ready. Parents were provided literature regarding: signs and symptoms of baby blues and mood and anxiety disorders, Help Me Grow, shaken baby prevention, ABCs of safe sleep and a list of county resources that are available for them should any needs present themselves. Haja Saul, AUTOMATIC OUTSOLE CUTTER, OPTICS ENGINEER
--- NOTE | 2024-10-17 14:03 | NURSING ---
Attempted to make a follow-up phone call. Messaged left on voicemail for the patient to call back with any questions or needs.
== END 2024-10-13 15:38 | disposition home or self-care (01) | DRG 807 ==
LOC: WPOUT 05:28 → WP 05:28
PROVIDERS: Admitting Provider Advanced Practice Midwife; Referring Provider Advanced Practice Midwife; Visit Provider Advanced Practice Midwife
DX: O30.043 Twin pregnancy, dichorionic/diamniotic, third trimester (principal); Z37.2 Twins, both liveborn; O36.5930 Maternal care for other known or suspected poor fetal growth, third trimester, not applicable or unspecified; Z3A.35 35 weeks gestation of pregnancy; Z67.91 Unspecified blood type, Rh negative; Z86.32 Personal history of gestational diabetes; O69.81X0 Labor and delivery complicated by cord around neck, without compression, not applicable or unspecified
CPT/HCPCS: 59025; 59050; 76815; 85025; 86780; 86850; 86870; 86900; 86901; 87081; 87653; 99221; A4216; G0378; J2405